=== PATIENT | male | born 1990 | race African-American/Black ===

== ENCOUNTER 2022-03-14 06:25 | Emergency (ER) | payer SELFPAY ==
[~2022-03-14] VITALS: Ht 167.6 cm; Wt 61.7 kg
--- NOTE | 2022-03-14 08:17 | RAD ---
XR FOREARM_RIGHT 2 VIEWS History: Reason: pain / Spl. Instructions: / History: Technique: 2 views right forearm Comparison: None. Findings: No dislocation. No acute fracture. Impression: 1. No acute osseous abnormality. Electronically signed by: Herbert Rubi DO (03/14/2022 8:14 AM) [id number]
--- NOTE | 2022-03-14 08:27 | PHYS DOC ---
Past Medical History Past Surgical History: Other Additional Past Surgical Histo: BACK Smoking Status: Current Every Day Smoker Additional Information: 0.5 PPD Alcohol Use: Heavy Additional Information: 2 BEERS DAILY General Adult EDM: Chief Complaint: ALCOHOL INTOXICATION HPI: HPI: Patient is a 31 year old male with a history of schizophrenia comes into the ER agitated and confused. Patient states that his right forearm hurts. Patient states he was bit by a snake but there is no evidence of a puncture wound around the area. Patient was walking across the street in the middle of traffic when brought in by EMS. Patient denies any suicidal or homicidal ideation. Patient does admit to drinking 2 beers. Denies any drug use. Review of Systems: Review of Systems: Constitutional: Denies fever or chills. [] Eyes: Denies change in visual acuity. [] HENT: Denies nasal congestion or sore throat. [] Respiratory: Denies cough or shortness of breath. [] Cardiovascular: Denies chest pain or edema. [] GI: Denies abdominal pain, nausea, vomiting, bloody stools or diarrhea. [] : Denies dysuria. [] Musculoskeletal: Right forearm pain denies back pain or joint pain. [] Integument: Denies rash. [] Neurologic: Denies headache, focal weakness or sensory changes. [] Endocrine: Denies polyuria or polydipsia. [] Lymphatic: Denies swollen glands. [] Psychiatric: Denies depression or anxiety. [] Heart Score: C/O Chest Pain: No Risk Factors: Risk Factors: DM, Current or recent (<one month) smoker, HTN, HLP, family history of CAD, obesity. Risk Scores: Score 0 - 3: 2.5% MACE over next 6 weeks - Discharge Home Score 4 - 6: 20.3% MACE over next 6 weeks - Admit for Clinical Observation Score 7 - 10: 72.7% MACE over next 6 weeks - Early Invasive Strategies Allergies: Allergies: Allergies Coded Allergies Type Severity Reaction Last Updated Verified No Known Drug Allergies 03/14/22 No Physical Exam: PE: Constitutional: Well developed, well nourished, no acute distress, non-toxic appearance. [] HENT: Normocephalic, atraumatic, bilateral external ears normal, oropharynx moist, no oral exudates, nose normal. [] Eyes: PERRLA, EOMI, conjunctiva normal, no discharge. [] Neck: Normal range of motion, no tenderness, supple, no stridor. [] Cardiovascular:Heart rate regular rhythm, no murmur [] Lungs & Thorax: Bilateral breath sounds clear to auscultation [] Abdomen: Bowel sounds normal, soft, no tenderness, no masses, no pulsatile m asses. [] Skin: Skin around the arm is intact with no evidence of puncture or trauma. Compartments are soft. Warm, dry, no erythema, no rash. [] Back: No tenderness, no CVA tenderness. [] Extremities: No tenderness, no cyanosis, no clubbing, ROM intact, no edema. [] Neurologic: Alert and oriented X 3, normal motor function, normal sensory function, no focal deficits noted. [] Psychologic: Patient is agitated. Confused. [] Current Patient Data: Vital Signs: Vital Signs Date Time Temp Pulse Resp B/P (MAP) Pulse Ox O2 Delivery O2 Flow Rate FiO2 03/14/22 07:47 98.1 84 18 123/93 (103) 100 Room Air 98.1 EKG: EKG: [] Patient is a normal sinus rhythm by the T wave in V3. Heart rate is 77. QTc of 470 Radiology/Procedures: Radiology/Procedures: []CT HEAD/BRAIN WO History: Altered mental status. Comparison: CT head 11/05/2021 Technique: Noncontrast CT imaging was performed of the head. Findings: No intracranial hemorrhage. No mass effect. No hydrocephalus. No evidence of acute territorial infarction. Imaged orbits are unremarkable. Imaged paranasal sinuses and mastoid air cells are clear. The scalp and calvarium are unremarkable. Impression: 1. No acute intracranial abnormality. XR FOREARM_RIGHT 2 VIEWS History: Reason: pain / Spl. Instructions: / History: Technique: 2 views right forearm Comparison: None. Findings: No dislocation. No acute fracture. Impression: 1. No acute osseous abnormality. Course & Med Decision Making: Course & Med Decision Making Pertinent Labs and Imaging studies reviewed. (See chart for details) [] Patient requires IV hydration rhabdomyolysis likely secondary to polysubstance abuse. Dragon Disclaimer: Dragon Disclaimer: This electronic medical record was generated, in whole or in part, using a voice recognition dictation system. TISH LA DO Mar 14, 2022 08:27
--- NOTE | 2022-03-14 08:35 | EKG ---
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
[2022-03-14 08:55] LABS: BASO # 0.1 x10^3/uL (0.0-0.2); BASO % 1 % (0-3); EOS % 0 % (0-3); HEMATOCRIT 48.4 % (39.0-53.0); HEMOGLOBIN 16.1 g/dL (13.0-17.5); LYMPH # 2.3 x10^3/uL (1.0-4.8); LYMPH % 26 % (24-48); MEAN CORPUSCULAR HEMOGLOBIN 28 pg (25-35); MEAN CORPUSCULAR HGB CONC 33 g/dL (31-37); MEAN CORPUSCULAR VOLUME 83 fL (79-100); MONO # 0.6 x10^3/uL (0.0-1.1); MONO % 7 % (0-9); NEUT # 5.8 x10^3/uL (1.8-7.7); NEUT % 66 % (31-73); PLATELET COUNT 244 x10^3/uL (140-400); RED BLOOD COUNT 5.84 x10^6/uL (4.30-5.70); RED CELL DISTRIBUTION WIDTH 14.7 % (11.5-14.5); WHITE BLOOD COUNT 8.8 x10^3/uL (4.0-11.0)
[2022-03-14 09:13] LABS: GFR 104.1; POTASSIUM 3.5 mmol/L (3.5-5.1)
[2022-03-14 09:28] LABS: TOTAL BILIRUBIN 0.8 mg/dL (0.2-1.0); TOTAL PROTEIN 10.2 g/dL (6.4-8.2)
--- NOTE | 2022-03-14 09:32 | RAD ---
CT HEAD/BRAIN WO History: Altered mental status. Comparison: CT head 11/05/2021 Technique: Noncontrast CT imaging was performed of the head. Findings: No intracranial hemorrhage. No mass effect. No hydrocephalus. No evidence of acute territorial infar ction. Imaged orbits are unremarkable. Imaged paranasal sinuses and mastoid air cells are clear. The scalp a nd calvarium are unremarkable. Impression: 1. No acute intracranial abnormality. ----- Exposure: One or more of the following individualized dose reduction techniques were utilized for thi s examination: 1. Automated exposure control 2. Adjustment of the mA and/or kV according to patient size 3. Use of iterative reconstruction technique. Electronically signed by: Bryan Barragan MD (03/14/2022 9:29 AM) [id number]
[2022-03-14] MEDS ORDERED: IV NORMAL SALINE 1000ML BAG 1,000 ML IV ONE ×2 (10:30→13:45)
--- NOTE | 2022-03-14 14:04 | PDOC1 ---
History and Physical Date of Service: DOS: DATE: 03/14/22 TIME: 13:59 Chief Complaint: Chief Complain: Pain in the extremities History of Present Illness: HPI: 31 year old male with a history of schizophrenia comes into the ER agitated and confused. Patient states that his right forearm hurts. Patient states he was bit by a snake but there is no evidence of a puncture wound around the area. Dez sargent was walking across the street in the middle of traffic when brought in by EMS. Patient denies any suicidal or homicidal ideation. Patient does admit to drinking 2 beers. Denies any drug use. Past Medical/Surgical History: PMH/PSH: Past Surgical History: BACK surgery Allergies: Allergies: Coded Allergies: No Known Drug Allergies (Unverified , 03/14/22) Family History: Family History: Reviewed with relative findings in the chart Social History: Social History: Smoking Status: Current Every Day Smoker Additional Information: 0.5 PPD Alcohol Use: Heavy Additional Information: 2 BEERS DAILY Current Medications: Current Medications Current Medications Sodium Chloride 1,000 ml @ 1,000 mls/hr 1X ONCE IV Last administered on 03/14/22at 11:42; Start 03/14/22 at 10:30; Stop 03/14/22 at 11:29; Status DC Sodium Chloride 1,000 ml @ 1,000 mls/hr 1X ONCE IV Last administered on 03/14/22at 13:51; Start 03/14/22 at 13:45; Stop 03/14/22 at 14:44 ROS: Review of Systems Review of System REVIEW OF SYSTEMS: GENERAL: Denies weakness SKIN: No bruising, hair changes or rashes. EYES: No blurred, double or loss of vision. NOSE AND THROAT: No history of nosebleeds, hoarseness or sore throat. HEART: No history of palpitations, chest pain or shortness of breath on exertion. LUNGS: Denies cough, hemoptysis, wheezing or shortness of breath. GASTROINTESTINAL: Denies changes in appetite, nausea, vomiting, diarrhea or constipation. GENITOURINARY: No history of frequency, urgency, hesitancy or nocturia. NEUROLOGIC: Denies history of numbness, tingling, or tremor. PSYCHIATRIC: No history of panic, anxiety or depression. ENDOCRINE: No history of heat or cold intolerance, polyuria or polydipsia. EXTREMITIES: Pain in right forearm Physical Exam: Vital Signs: Vital Signs Date Time Temp Pulse Resp B/P (MAP) Pulse Ox O2 Delivery O2 Flow Rate FiO2 03/14/22 12:10 86 117/74 (88) 97 Room Air 03/14/22 07:47 98.1 18 98.1 Physcial Exam: General: Well developed, well nourished, disheveled appearing HEENT: Pupils equally round and reactive to light, EOMI, no discharge, normal conjunctiva Neck: Supple, no nuchal rigidity, no JVD, trachea midline, no tenderness Cardiac: RRR, no murmurs, no gallops, no rubs Chest/Lungs: CTAB, no wheeze, no rhonchi, no crackles Abdomen: soft, non-distended, no guarding, no peritoneal signs, non-tender Back: No tenderness Extremities: no edema, pulses intact, non-tender,capillary refill <3 sec bilateral upper and lower extremities, Neuro: Alert and oriented x 4, no focal deficits, normal speech Labs: Labs: Laboratory Tests Test 03/14/22 08:40 White Blood Count 8.8 x10^3/uL (4.0-11.0) Red Blood Count 5.84 x10^6/uL (4.30-5.70) Hemoglobin 16.1 g/dL (13.0-17.5) Hematocrit 48.4 % (39.0-53.0) Mean Corpuscular Volume 83 fL (79-100) Mean Corpuscular Hemoglobin 28 pg (25-35) Mean Corpuscular Hemoglobin Concent 33 g/dL (31-37) Red Cell Distribution Width 14.7 % (11.5-14.5) Platelet Count 244 x10^3/uL (140-400) Neutrophils (%) (Auto) 66 % (31-73) Lymphocytes (%) (Auto) 26 % (24-48) Monocytes (%) (Auto) 7 % (0-9) Eosinophils (%) (Auto) 0 % (0-3) Basophils (%) (Auto) 1 % (0-3) Neutrophils # (Auto) 5.8 x10^3/uL (1.8-7.7) Lymphocytes # (Auto) 2.3 x10^3/uL (1.0-4.8) Monocytes # (Auto) 0.6 x10^3/uL (0.0-1.1) Eosinophils # (Auto) 0.0 x10^3/uL (0.0-0.7) Basophils # (Auto) 0.1 x10^3/uL (0.0-0.2) Sodium Level 135 mmol/L (136-145) Potassium Level 3.5 mmol/L (3.5-5.1) Chloride Level 95 mmol/L (98-107) Carbon Dioxide Level 28 mmol/L (21-32) Anion Gap 12 (6-14) Blood Urea Nitrogen 10 mg/dL (8-26) Creatinine 1.0 mg/dL (0.7-1.3) Estimated GFR (Cockcroft-Gault) 104.1 BUN/Creatinine Ratio 10 (6-20) Glucose Level 81 mg/dL (70-99) Calcium Level 10.0 mg/dL (8.5-10.1) Total Bilirubin 0.8 mg/dL (0.2-1.0) Aspartate Amino Transf (AST/SGOT) 52 U/L (15-37) Alanine Aminotransferase (ALT/SGPT) 26 U/L (16-63) Alkaline Phosphatase 64 U/L (46-116) Ammonia < 10 mcmol/L (11-34) Creatine Kinase 1911 U/L (39-308) Total Protein 10.2 g/dL (6.4-8.2) Albumin 5.0 g/dL (3.4-5.0) Albumin/Globulin Ratio 1.0 (1.0-1.7) Ethyl Alcohol Level < 10 mg/dL (0-10) Laboratory Tests Test 03/14/22 08:40 White Blood Count 8.8 x10^3/uL (4.0-11.0) Red Blood Count 5.84 x10^6/uL (4.30-5.70) Hemoglobin 16.1 g/dL (13.0-17.5) Hematocrit 48.4 % (39.0-53.0) Mean Corpuscular Volume 83 fL (79-100) Mean Corpuscular Hemoglobin 28 pg (25-35) Mean Corpuscular Hemoglobin Concent 33 g/dL (31-37) Red Cell Distribution Width 14.7 % (11.5-14.5) Platelet Count 244 x10^3/uL (140-400) Neutrophils (%) (Auto) 66 % (31-73) Lymphocytes (%) (Auto) 26 % (24-48) Monocytes (%) (Auto) 7 % (0-9) Eosinophils (%) (Auto) 0 % (0-3) Basophils (%) (Auto) 1 % (0-3) Neutrophils # (Auto) 5.8 x10^3/uL (1.8-7.7) Lymphocytes # (Auto) 2.3 x10^3/uL (1.0-4.8) Monocytes # (Auto) 0.6 x10^3/uL (0.0-1.1) Eosinophils # (Auto) 0.0 x10^3/uL (0.0-0.7) Basophils # (Auto) 0.1 x10^3/uL (0.0-0.2) Sodium Level 135 mmol/L (136-145) Potassium Level 3.5 mmol/L (3.5-5.1) Chloride Level 95 mmol/L (98-107) Carbon Dioxide Level 28 mmol/L (21-32) Anion Gap 12 (6-14) Blood Urea Nitrogen 10 mg/dL (8-26) Creatinine 1.0 mg/dL (0.7-1.3) Estimated GFR (Cockcroft-Gault) 104.1 BUN/Creatinine Ratio 10 (6-20) Glucose Level 81 mg/dL (70-99) Calcium Level 10.0 mg/dL (8.5-10.1) Total Bilirubin 0.8 mg/dL (0.2-1.0) Aspartate Amino Transf (AST/SGOT) 52 U/L (15-37) Alanine Aminotransferase (ALT/SGPT) 26 U/L (16-63) Alkaline Phosphatase 64 U/L (46-116) Ammonia < 10 mcmol/L (11-34) Creatine Kinase 1911 U/L (39-308) Total Protein 10.2 g/dL (6.4-8.2) Albumin 5.0 g/dL (3.4-5.0) Albumin/Globulin Ratio 1.0 (1.0-1.7) Ethyl Alcohol Level < 10 mg/dL (0-10) Images: Images PROCEDURE: CT HEAD WO CONTRAST CT HEAD/BRAIN WO History: Altered mental status. Comparison: CT head 11/05/2021 Technique: Noncontrast CT imaging was performed of the head. Findings: No intracranial hemorrhage. No mass effect. No hydrocephalus. No evidence of acute territorial infarction. Imaged orbits are unremarkable. Imaged paranasal sinuses and mastoid air cells are clear. The scalp and calvarium are unremarkable. Impression: 1. No acute intracranial abnormality. PROCEDURE: FOREARM RIGHT XR FOREARM_RIGHT 2 VIEWS History: Reason: pain / Spl. Instructions: / History: Technique: 2 views right forearm Comparison: None. Findings: No dislocation. No acute fracture. Impression: 1. No acute osseous abnormality. Assessment/Plan Assessment/Plan Acute rhabdomyolysis Acute electrolyte derangementhyponatremia, hypochloremia suggestive of volume depletion History of schizophrenia Admit to hospitalist service for further management Continue aggressive IV fluid hydration Trend CK levels Monitor urine output and creatinine levels Pending tox screen SCD and ambulation for DVT prophylaxis Regular diet CODE STATUS full Discussed with RN and SW Disposition inpatient management as above DPOA: Undesignated Justifications for Admission Other Justification OCTAVIA CONTE MD Mar 14, 2022 14:04
[2022-03-14] MEDS ORDERED: DOCUSATE SODIUM 100 MG CAPSULE. PO PRN (14:15)
[2022-03-14] MEDS ORDERED: ONDANSETRON PF 4 MG/2 ML VIAL. IVP PRN (14:15)
[2022-03-14] MEDS ORDERED: LORazepam 0.5 MG TABLET PO PRN (14:15)
[2022-03-14] MEDS ORDERED: oxyCODONE/APAP 5/325 1 TAB TABLET PO PRN ×2 (14:15)
[2022-03-14] MEDS ORDERED: diphenhydrAMINE HCL 25 MG CAPSULE PO PRN ×2 (14:15)
[2022-03-14] MEDS ORDERED: IV NORMAL SALINE 1000ML BAG 1,000 ML IV SCH (14:15)
[2022-03-14] MEDS ORDERED: diphenhydrAMINE 50 MG/ML VIAL IVP PRN (14:15)
[2022-03-14] MEDS ORDERED: SENNOSIDES 8.6 MG TABLET PO PRN (14:15)
[2022-03-14] MEDS ORDERED: DEXTROSE 50% 25 GM / 50ML DISP.SYRIN. IV PRN (14:15)
[2022-03-14] MEDS ORDERED: ZOLPIDEM 5 MG TABLET. PO PRN (14:15)
[2022-03-14] MEDS ORDERED: PROCHLORPERAZINE 10 MG/2 ML VIAL. IV PRN (14:15)
[2022-03-14] MEDS ORDERED: ACETAMINOPHEN 325 MG TABLET. PO PRN (14:15)
[2022-03-14 14:51] VITALS: BP 132/79
--- NOTE | 2022-03-18 14:14 | PDOC3 ---
[facility]-Discharge Summary Date of Admission: Date of Admission: Mar 14, 2022 Date of Discharge: Date of Discharge: Mar 14, 2022 Discharge Diagnosis: Discharge Diagnosis: Assessment/Plan Acute rhabdomyolysis Acute electrolyte derangementhyponatremia, hypochloremia suggestive of volume depletion History of schizophrenia Hospital Course: Hospital Course: 31 year old male with a history of schizophrenia comes into the ER agitated and confused. Patient states that his right forearm hurts. Patient states he was bit by a snake but there is no evidence of a puncture wound around the area. Patient was walking across the street in the middle of traffic when brought in by EMS. Patient denies any suicidal or homicidal ideation. Patient does admit to drinking 2 beers. Denies any drug use. Patient was found to be in rhabdomyolysis and was admitted for further care. U nfortunately patient decided to leave AMA. Disposition: Disposition/Orders: Other (AMA) Activity: Activity: Resume previous activity Total Time: Total Time: Total time spent was 31 minutes in preparing scripts, discharge planning with SWI and RN and preparing this discharge summary Patient seen and examined on day of discharge. No acute abnormal findings. Justicifation of Admission Dx: Justifications for Admission: Justification of Admission Dx: Yes Angina: [facility] OCTAVIA CONTE MD Mar 18, 2022 14:14
== END 2022-03-14 15:26 | disposition left against medical advice (07) ==
LOC: ER 06:25
DX: R41.0 Disorientation, unspecified (principal); M79.631 Pain in right forearm; R45.1 Restlessness and agitation; F17.200 Nicotine dependence, unspecified, uncomplicated; F10.20 Alcohol dependence, uncomplicated; Y90.0 Blood alcohol level of less than 20 mg/100 ml
CPT/HCPCS: 36415; 70450; 73090; 80053; 82140; 82550; 85025; 93005; 96360; 96361; 99285; G0480; J7030